=== PATIENT | male | born 1940 | race Caucasian/White ===

== ENCOUNTER → 2018-04-16 | Outpatient (CLI) | payer MEDICARE, OTHER ==
--- NOTE | 2018-04-16 13:22 | RADIOLOGY IMAGING REPORT ---
[place] [facility] [place] NAME[place] Doug Barakat : 1940 MR: [id number] V: [id number] EXAM DATE: ORDERING PHYSICIAN: PHILLIP BOWMAN TECHNOLOGIST: Location: [facility] Patient: Doug Barakat : 1940 Visit/Account:[id number] Date of Sevice: 04/16/2018 Exam type: CHEST PA AND LAT History: COPD, back pain, chest pain Comparison: July 17, 2017. Findings: The lungs are free of acute appearing infiltrates, pleural effusions or pulmonary edema. No evidence of a pneumothorax or pneumomediastinum. Cardiac silhouette is normal in size. There is a moderate size hiatal hernia present. There is marked ectasia the thoracic aorta.. Old left-sided rib fractur es IMPRESSION: 1. No evidence of acute pulmonary consolidation Report Dictated By: Madalyn Smith MD at 04/16/2018 1:15 PM Report E-Signed By: Madalyn Smith MD at 04/16/2018 1:17 PM WSN:[email or web address]
== END ==
LOC: RAD 10:55
PROVIDERS: ATTEND Family Medicine
DX: M54.5 Low back pain (principal); J44.9 Chronic obstructive pulmonary disease, unspecified
CPT/HCPCS: 71046

== ENCOUNTER 2018-09-21 11:00 | Outpatient (RCR) | payer MEDICARE, OTHER ==
--- NOTE | 2018-08-25 16:16 | TOBIN CONSULT ---
EVENT DATE: August 17, 2018 CHIEF COMPLAINT Moderately severe bone pain, newly diagnosed prostate carcinoma to retroperitoneal lymph nodes and bone. HISTORY This is a 78-year-old gentleman who is referred to the Cancer Center by Dr. Guzman. Patient has seen Dr. Anand for medical oncology and myself for radiation oncology. He has also been seen by JIMMY Yanez, at the Cancer Center to help coordinate the oncology treatment plan. Patient presents with moderately severe pain which has not been responding to oral hydrocodone or injections. The pain predominantly is in the left hip and lower back, although intermittently the pain is also in multiple ribs on the left side and the right. Pain has been intensified over the last three to six months and is present both day and at night. Patient had initial MRI scan of the lumbar spine requested by Dr. Guzman, and he was found to have multiple bone lesions consistent with osteoblastic tumor metastases and retroperitoneal lymphadenopathy. PSA was obtained which was significantly elevated at 265 ng/mL on the 07/19/18. Patient underwent biopsy at lumbar 1 on 08/04/18, which was confirmatory for metastatic prostate carcinoma to bone. Patient's initial CT scan of the chest, abdomen, and pelvis revealed significant retroperitoneal lymphadenopathy up to 2.2 cm. There is also right common and external iliac lymphadenopathy up to 1.7 cm. There was an incidental finding of radiodensity near the left mainstem bronchus at 1.8 cm, which will need to be followed up at a later date and was ill defined. The CT scan also confirmed diffuse osteoblastic metastasis. The films were personally reviewed by myself, and I also individually reviewed the films with Dr. Smith of Radiology. The patient had a bone scan on 07/20/18 which revealed tracer activity to the lower thoracic spine. Multiple bony metastases were also noted in the pelvis, left acetabulum. There is a small lesion of the left femur diaphysis, mid. Significant tracer activity along the lateral aspect of the ribs bilaterally, right greater than left. CT also revealed considerable enlargement of the prostate with diffuse irregularity. There is some thickening of the bladder wall. I personally reviewed the MRI scan with significant tracer activity at multiple bony sites. The largest concentration appeared to be at the lower thoracic spine. No acute spinal cord compression, fortunately. Disease in the lumbar spine was better appreciated on the bone window sequence on the CT, surprisingly. Patient is taking hydrocodone for the back pain. Dr. Anand has requested initiation of Firmagon, and that should start within the week. I also was able to appreciate a broad disk herniation in the lumbar spine on the MRI scan review with Dr. Smith, and patient will be started on a short course of oral steroids today to help temporize some of that pain. The steroids also have direct effect on the prostate cancer cells. Presently, I am asked to see the patient for radiation palliation of progressive bone pain. PAST MEDICAL HISTORY 1. Prostate cancer with history listed above. 2. Gout. 3. History of osteoarthritis. SURGICAL HISTORY 1. Right carpal tunnel repair. 2. Bilateral cataracts. FAMILY HISTORY One sister had breast cancer. He has a brother with prostate cancer. Mother, leukemia. SOCIAL HISTORY . He is retired. Previously did concrete work. Prior smoking history of half pack per day for 45 years. He does enjoy drinking beer. He has three children. MEDICATIONS 1. Hydrocodone 5/325 one to two q.4-6 hours p.r.n. pain. 2. Allopurinol. ALLERGIES None. COMPREHENSIVE REVIEW OF SYSTEMS Outlined on intake form, reviewed with patient, and scanned into EMR. PHYSICAL EXAMINATION GENERAL: Pleasant, 78-year-old male of medium build. No clinical signs of wasting. Karnofsky Performance Status 80%. LUNGS: Clear to auscultation bilaterally. HEART: Regular. LYMPHATICS: No peripheral lymphadenopathy identified. ABDOMEN: Soft. No gross organomegaly. MUSCULOSKELETAL: No present swelling in the lower extremities. Patient does have pain over the ribs with palpation as well as the mid to lower thoracic spine. NEUROLOGIC: Intact with no focal motor weakness identified at this juncture. IMPRESSION This is a 78-year-old gentleman with newly diagnosed metastatic prostate carcinoma to bone. He presents with an elevated PSA at 265 ng/mL. He has confirmatory radiographic studies, which I reviewed personally with the patient and radiologist today. Those studies include an MRI scan of the spine, CT of chest, abdomen, and pelvis, and bone scan. He had a bone biopsy on 08/04/18 which confirmed carcinoma activity of lumbar 1. PLAN Patient is symptomatic in the lumbar spine and left acetabulum. Plan to utilize two separate radiation yang to cover the areas of symptomatic bone pain. Field 1 will cover T10 to L5 with an APPA technique weighted heavily posteriorly. That field will proceed to 3000 cGy in 15 fractions, possible boost of five fractions depending on pain relief response. Field 2 will cover the left hip pain which appears to be coming from the left acetabulum. I will utilize a three-field treatment approach to cover the left acetabulum. I also elected to contour in the irregular prostate, which was partially causing some obstructive uropathy. We may also add Flomax shortly. Dr. Anand will direct the patient on Firmagon for accelerated therapeutic response, and we will hopefully have this available to the patient within the next seven days. Radiation therapy will start within one week as well as I complete the complex treatment planning. Additional radiation yang may be necessary at a later point to the ribs as well as the small lesion in the left mid femur diaphysis. I did not see any cortical disruption, however, at this time on the latter. Signed consent was obtained for treatment, and all questions answered to the patient's satisfaction. One hour spent directly face to face with the patient for interview and radiographic review. An additional hour was spent with the radiology with Dr. Smith today to carefully review all imaging. Thank you for the referral and conference in the Cancer Center. JUAN
[~2018-09-21 11:00] MED LIST: HYDR-385 PO; IBUP800T37 PO
[2018-09-24] MEDS ORDERED: CALC600T63 PO (10:38)
[2018-09-24] MEDS ORDERED: TAMS0.4C25 PO (10:41)
[2018-09-24] MEDS ORDERED: CHOL10005 PO (10:41)
== END 2018-10-18 11:48 | disposition home or self-care (01) ==
LOC: RAON 11:00
PROVIDERS: ATTEND Radiology Radiation Oncology
DX: Z51.0 Encounter for antineoplastic radiation therapy (principal); C61 Malignant neoplasm of prostate; C79.51 Secondary malignant neoplasm of bone; R59.0 Localized enlarged lymph nodes; M54.5 Low back pain; M25.552 Pain in left hip; N13.9 Obstructive and reflux uropathy, unspecified; M51.06 Intervertebral disc disorders with myelopathy, lumbar region
CPT/HCPCS: 36415; 77290; 77295; 77300; 77334; 77336; 77412; 77417; 84153; 85025; 96402; G0463; J9155; 77280; 82040; 82247; 82310; 82374; 82435; 82565; 82947; 84075; 84132; 84155; 84295; 84450; 84460; 84520; 99202

== ENCOUNTER 2018-09-24 09:51 | Outpatient (RCR) | payer MEDICARE, OTHER ==
[2018-07-19 08:57] VITALS: BP 148/98
[2018-07-19 10:02] LABS: PLATELET COUNT, AUTOMATED 176 K/uL (150-450)
--- NOTE | 2018-07-20 11:01 | RADIOLOGY IMAGING REPORT ---
[facility] PATIENT NAME: Doug Barakat : 1940 MR: [id number] V: [id number] EXAM DATE: ORDERING PHYSICIAN: JACQUES OZUNA TECHNOLOGIST: Location: [facility] Patient: Doug Barakat : 1940 Visit/Account:[id number] Date of Sevice: 07/20/2018 CHEST/AB/PELV W/WO CONTRAST HISTORY: Bone lesions ADDITIONAL HISTORY: None. TECHNIQUE: Pre and post administration of IV contrast axial images acquired through the chest abdome n and pelvis during the portal venous phase. Coronal and sagittal reformatting was also performed.Do se Lowering Technique One of the following dose optimization techniques was utilized in the performance of this exam: Autom ated exposure control; adjustment of the mA and/or kV according to the patient's size; or use of an i terative reconstruction technique. Specific details can be referenced in the facility's radiology C T exam operational policy. CONTRAST: 75 mL Isovue-370 COMPARISON: MRI of the lumbar spine July 15, 2018 FINDINGS: CHEST: Lungs/Pleura: There is coarse linear stranding in the lung bases which may represent scarring versus atelectasis. There is a 1.8 x 0.7 x 0.4 cm filling defect within the left main bronchus adherent to the posterior/superior wall. Although this could represent a mucous plug, a mass lesion should be e xcluded Mediastinum/lymph nodes: Negative. Heart/vessels: At least moderate coronary artery vascular calcifications are present. There are mod erate vascular calcifications in the thoracic aorta and branch vessels. There is a moderate narrowin g in the proximal left subclavian artery Bones/soft tissues: There are multiple blastic lesions seen throughout the thoracic spine most sever césar affected level is T8. There is mild loss of height of the superior endplate of T4 which may be r elated to a Schmorl's node multiple blastic lesions also identified in the ribs bilaterally. Extensive degenerative changes are also noted in the shoulder joints bilaterally ABDOMEN AND PELVIS: Hepatobiliary: Negative. Spleen: Spleen is borderline enlarged measuring 13.3 cm in length Pancreas: Negative. Adrenals: Negative. Kidneys ureters and bladder : Kidneys appear unremarkable. There is moderate bladder wall thickening which may part be related to underdistention with urine Genitalia: Prostate gland is enlarged, diffusely heterogeneous, contains coarse calcifications and im pinges into the floor the urinary bladder GI: There is a large hiatal hernia. There is colonic diverticulosis although no CT evidence of acu te diverticulitis Vessels/spaces/nodes: Extensive atherosclerotic calcifications are seen throughout the abdominal aor ta and branch vessels. There is moderate narrowing in the mid abdominal aorta secondary to mural thr ombus and atherosclerotic calcifications. There is extensive retroperitoneal adenopathy present. A account service representative left periaortic lymph node a t the proximal level the umbilicus measures approximately 1.7 x 1.3 cm a account service representative aortocaval ly mph node just above this level measures approximately 1.4 x 1.2 cm a account service representative right common delia c lymph node measures 1.5 x 1.2 cm right external iliac lymph node measures 2 x 1.3 cm. Additional r ight external iliac lymph node measures 2.2 x 1.7 cm Bones/soft tissues: There is a small right inguinal hernia containing fat. Extensive osteoblastic metastases are seen throughout the lumbar spine pelvis and hips. There is a levoconvex scoliosis of the lumbar spine with associated spondylotic changes. Additional findings: None pertinent. IMPRESSION: Extensive osteoblastic metastases throughout the visualized skeleton as described above 1.8 x 0.7 x 0.4 cm filling defect within the left main bronchus as described above which could repres ent a mucous plug versus a mass lesion.. Bronchoscopy is recommended Extensive vascular calcifications as described Borderline splenomegaly Prostate gland i enlarged, diffusely heterogeneous containing coarse calcination occasions impinging upon the floor the bladder. Bladder wall is moderately thickened which may part be related to underdistention with urineHiatal he rnia Colonic diverticulosis Small right inguinal hernia containing fat Extensive retroperitoneal adenopathy. Report Dictated By: Madalyn Smith MD at 07/20/2018 9:36 AM Report E-Signed By: Madalyn Smith MD at 07/20/2018 10:56 AM WSN:[email or web address]
--- NOTE | 2018-07-20 11:57 | RADIOLOGY IMAGING REPORT ---
FACILITY: [facility] PATIENT NAME: Doug Barakat : 1940 MR: [id number] V: [id number] EXAM DATE: ORDERING PHYSICIAN: JACQUES OZUNA TECHNOLOGIST: Location: [facility] Patient: Doug Barakat : 1940 Visit/Account:[id number] Date of Sevice: 07/20/2018 Examination: Nuclear medicine whole body bone scan Comparison: CT chest, abdomen, and pelvis same day. History: Prostate cancer. Procedure: Standard whole body bone scan with anterior and posterior planar imaging following the une ventful administration of 24.8 mCi technetium 99m HDP. Findings: Normal physiologic tracer activity throughout the axial and appendicular skeleton and the s oft tissues. Widespread osseous metastatic disease. This is greatest in the axial skeleton were there are numerous foci of increased tracer activity throughout the spine and greatest in the midthoracic region. These sites correspond to sclerotic lesions on the animal taxonomist CT. Additionally, a metastatic lesion is present in the left parieto-occipital region, multiple bilateral ribs, and numerous small sites throughout the pelvis. Subtle small foci of increased tracer activity are also present within the bilateral mid humeri; thes e are of uncertain significance and while they could be related to the deltoid insertions, metastatic disease remains a possibility. A punctate focus of increased tracer activity in the left femur mid d iaphysis is concerning for metastasis. Multifocal degenerative change involving both shoulders, both elbows, both wrists, both knees, and th roughout the hands and feet. IMPRESSION: Multifocal osseous metastatic disease as described above. Report Dictated By: Jose Olvera MD at 07/20/2018 11:45 AM Report E-Signed By: Jose Olvera MD at 07/20/2018 11:52 AM WSN:[id number]
--- NOTE | 2018-07-20 20:16 | ONCOLOGY CONSULTATION ---
EVENT DATE: July 19, 2018 CHIEF COMPLAINT Referred for abnormal MRI of spine. HISTORY OF PRESENT ILLNESS Patient is a 78-year-old male who has been referred to our clinic from [facility] by Dr. Guzman, Pain Management. He states he has had back pain for "several years." He has been treated with steroid injections, but found these were of less use after the third one. Today, he presents with significant left hip and low back pain with radiation to his left leg. He describes his left leg as being intermittently numb. He has been given hydrocodone and taking one every six hours which has been somewhat helpful. He has noted recent constipation. Urinary stream is weak with increased frequency and dribbling. He presents for evaluation after undergoing MRI of the lumbar spine on 07/15/18, which showed multiple T1 and T2 hypointense bone lesions suspicious for blastic metastases. Also noted were multiple mildly enlarged retroperitoneal lymph nodes measuring up to 2.2 x 1.2 cm. Multilevel degenerative disk disease and facet hypertrophy were also noted. MEDICAL HISTORY 1. Gout. 2. Osteoarthritis. SURGICAL HISTORY 1. Right carpal tunnel repair. 2. Bilateral cataracts. FAMILY HISTORY Mother had leukemia. Sister had breast cancer at an unknown age. Brother had prostate cancer. SOCIAL HISTORY Patient is . They have three grown children. He is retired from concrete work. He has smoked half a pack a day for 40 to 50 years. He does drink beer regularly. MEDICATIONS 1. Hydrocodone 5/325 mg. 2. Allopurinol. ALLERGIES No known drug allergies. REVIEW OF SYSTEMS A 14-point review of systems is performed and is negative except as stated above. PHYSICAL EXAMINATION VITAL SIGNS: Weight 80.4 kg, BP 148/98, P 80, R 16, temp 97.3, O2 sat 85%. GENERAL: Patient is a well-developed, well-nourished, elderly male in no acute distress. He ambulates unassisted. HEAD: Normocephalic, atraumatic. EYES: Sclerae anicteric. MOUTH: Moist mucous membranes. No lesions. NECK: Supple. No palpable adenopathy. LUNGS: Slightly diminished bilaterally, but clear. CARDIOVASCULAR: Heart rate regular, 80 per minute, without murmur, S3, or S4. ABDOMEN: Soft, nontender, with hypoactive bowel sounds. No organomegaly. EXTREMITIES: No pedal edema. NEUROLOGIC: Nonfocal. Strength in both legs is equal. SKIN: No rash noted. LABORATORY CBC today reveals a WBC of 6.1, hemoglobin 14.4, hematocrit 44.1, platelets 176,000. CMP was within normal limits except for a minimally elevated alkaline phosphatase of 133. SPEP with immunofixation is pending. PSA was 265. IMPRESSION AND PLAN The patient is a 78-year-old male who presented with an abnormal MRI of the spine showing multiple T1 and T2 hypointense bone marrow lesions suspicious for blastic metastases. There were also multiple mildly enlarged retroperitoneal nodes as well as degenerative disk disease. 1. Back pain. With elevated PSA, this is likely reflective of advanced prostate cancer. He will undergo initial staging with a CT of the chest, abdomen, and pelvis, as well as a bone scan. This will be accomplished in the next few days. He will then follow up with Dr. Anand in one week for treatment planning. 2. Gastrointestinal. Recent constipation. He is managing this with prune juice. We also discussed MiraLAX. 3. Pain. Continue hydrocodone 5/325 mg. This was prescribed by Dr. Guzman. He feels it is managing his pain fairly well. 4. Follow up in one week to review bone scan and CAT scan and for further treatment planning. cc: MD JUAN Fox
[2018-07-28 10:03] VITALS: BP 161/92
[2018-08-11 14:08] VITALS: BP 133/77
--- NOTE | 2018-08-12 19:44 | ONCOLOGY FOLLOW UP NOTE ---
EVENT DATE: August 12, 2018 CHIEF COMPLAINT Followup for metastatic prostate cancer. HISTORY OF PRESENT ILLNESS Patient is a 78-year-old male who is seen today in followup. He presents to discuss treatment for metastatic prostate cancer today. Overall, he feels fairly well, although continues with significant left low back pain as well as some intermittent right rib pain. He uses ibuprofen and occasional hydrocodone, but is somewhat overwhelmed by this discomfort. I spent a total of 45 minutes with the patient, his , and his son discussing his current status as well as initial treatment with Firmagon. He will receive further teaching about this before beginning treatment. ONCOLOGY HISTORY He was referred for an abnormal MRI from [facility] after noting an increase in back pain for "several years." CT of the chest, abdomen, and pelvis showed extensive bony disease with extensive retroperitoneal adenopathy. Prostate was enlarged and diffusely heterogeneous. Bone scan showed multifocal osseous metastatic disease. PSA was 265. He underwent bone biopsy on 08/04/18, which was positive for metastatic prostate cancer. To begin Firmagon. MEDICAL HISTORY 1. Gout. 2. Osteoarthritis. 3. Metastatic prostate cancer, July 2018. SURGICAL HISTORY 1. Right carpal tunnel repair. 2. Bilateral cataracts. FAMILY HISTORY Mother had leukemia. Sister had breast cancer at an unknown age. Brother had prostate cancer. SOCIAL HISTORY Patient is . They have three grown children. He is retired from concrete work. He has smoked half a pack a day for 40 to 50 years. He does drink beer regularly. MEDICATIONS 1. Hydrocodone 5/325 mg. 2. Allopurinol. ALLERGIES No known drug allergies. REVIEW OF SYSTEMS A 12-point review of systems is performed and is negative except as stated above. PHYSICAL EXAMINATION VITAL SIGNS: Weight 79.4 kg. Blood pressure 133/77, pulse 80, R 16, temp 97.1, O2 sat 90%. GENERAL: Patient is a well-developed, well-nourished male in no acute distress. He moves very slowly in the exam room with kyphotic posture. HEAD: Normocephalic, atraumatic. EYES: Sclerae anicteric. MOUTH: Moist mucous membranes. NECK: Supple. No palpable adenopathy. LUNGS: Clear bilaterally. CARDIOVASCULAR: Heart rate regular, 80 per minute, without murmur, S3, or S4. ABDOMEN: Soft, nontender, with hypoactive bowel sounds. No organomegaly. Point tenderness to his right lower ribs. EXTREMITIES: No pedal edema. NEUROLOGIC: Nonfocal. Strength in both legs is equal. LABORATORY No lab today. Baseline CBC and CMP were within normal limits except for a mildly elevated alkaline phosphatase of 133. Baseline PSA 265. SPEP within normal limits. IMPRESSION AND PLAN The patient is a 78-year-old male with stage IV prostate cancer with diffuse bony metastases as well as extensive retroperitoneal adenopathy. Bone biopsy on 08/04/18 confirmed the diagnosis of metastatic prostate cancer. To begin Firmagon next week. 1. Metastatic prostate cancer. As above, I spent a total of 45 minutes with the patient, his , and his son reviewing his case and discussing the treatment plan. Per Dr. Anand, we will begin treatment with Firmagon 240 mg subcutaneously initially, followed by 80 mg monthly. PSA will be checked at each visit. Dr. Anand is considering adding abiraterone after several months. Patient states agreement. He will receive further teaching regarding Firmagon before beginning treatment. 2. Pain. Ongoing left-sided low back pain as well as intermittent right rib pain. He finds this is becoming more debilitating. He uses ibuprofen with some effect. He takes hydrocodone p.r.n. ( does not think he takes it often enough). I have refilled hydrocodone 5/325 mg #30 for patient today. He will be referred to Dr. Dumont for possible radiation for pain control. 3. Gastrointestinal. Minimal constipation. I reminded him that the hydrocodone can cause more constipation. 4. Follow up in the next week to begin treatment with Firmagon. He will be seen on a monthly basis with a CBC, CMP, and PSA done at that time. [facility]
[2018-08-27 12:45] LABS: PLATELET COUNT, AUTOMATED 227 K/uL (150-450)
--- NOTE | 2018-08-27 21:01 | ONCOLOGY FOLLOW UP NOTE ---
EVENT DATE: August 27, 2018 DIAGNOSIS Metastatic prostate cancer. CHEMOTHERAPY TEACHING VISIT The patient and his are seen today for teaching. A total of 60 minutes was spent with them, 100% of which was [id number] counseling. HISTORY OF PRESENT ILLNESS The patient is a 78-year-old male who presents today to begin treatment with degarelix. He was recently diagnosed with metastatic prostate cancer, and baseline PSA was 265. Bone biopsy was positive for metastatic prostate cancer. He had significant bony arthralgias, especially on his left hip area. He began radiation on 08/25/18 with some improvement of his pain. Overall, he feels well and ready to begin treatment. ONCOLOGY HISTORY Began palliative radiation to the lumbar spine and pelvis on 08/25/18. Began degarelix on 08/27/18. MEDICAL HISTORY 1. Gout. 2. Osteoarthritis. 3. Metastatic prostate cancer, July 2018. SURGICAL HISTORY 1. Right carpal tunnel repair. 2. Bilateral cataracts. FAMILY HISTORY Mother had leukemia. Sister had breast cancer at an unknown age. Brother had prostate cancer. SOCIAL HISTORY Patient is . They have three grown children. He is retired from [employer] work. He has smoked half a pack a day for 40 to 50 years. He does drink beer regularly. MEDICATIONS 1. Hydrocodone 5/325 mg. 2. Allopurinol. ALLERGIES No known drug allergies. DISCUSSION A total of 60 minutes was spent in counseling today, 100% of which was face to face. 1. At today's teaching session, we discussed his diagnosis as well as the planned therapy regimen and toxicities associated with degarelix. Handouts of this drug were provided and reviewed in detail. 2. Side effects and toxicities of degarelix included, but were not limited to: a. Fatigue. Reviewed that this could be a very common side effect of treatment. I recommended he remain as active as possible, but rest as needed. b. Hot flashes. This can occur in 25% of men. There are sometimes associated mood changes. He will monitor for this, and we will manage side effects based on his response. c. Injection site reaction. This can occur in approximately 35% of people. He tolerated his first injections without issue. He will notify us if he develops significant redness or tenderness. d. Increased LFTs. This can occur in approximately 50% of people. CMP will be done routinely to monitor for this. I recommended he abstain from alcohol as much as possible. e. Bone loss. Recommended calcium 1200 mg daily as well as vitamin D3 1000 International Units daily. 3. I have instructed the patient to call our office if he is prescribed any new medications. It is recommended that multiple supplements or herbal medications may not be taken as these may interfere with the action of therapy. 4. Discussed dietary issues associated with therapy. His appetite has improved since beginning treatment, and I am hopeful that as we control his disease, this will continue to improve. 5. Follow up in one month for continued care. He will receive his second dose of degarelix at that time. CBC, CMP, and PSA will be done at that visit. ANASTASIIAD
--- NOTE | 2018-09-03 13:03 | NUR ---
Pt completed initial HADS form. Pt scored D:1, A:4
--- NOTE | 2018-09-12 04:17 | ONCOLOGY FOLLOW UP NOTE ---
EVENT DATE: July 28, 2018 REASON FOR FOLLOWUP Metastatic hormone-sensitive prostate cancer. CHIEF COMPLAINT Back pain. INTERIM HISTORY Mr. Barakat returns to clinic for a followup visit today. He is accompanied by his family members. I am seeing him today with Anh Damon, Nurse Practitioner. The patient reports that he is feeling okay for the most part, but he does continue to have some low back pain, particularly on the left. He denies fever. He has had no urinary symptoms. He has had no abdominal pain or changes in bowel habits. PAST MEDICAL HISTORY 1. Prostate cancer, as above. 2. Gout. 3. Osteoarthritis. PAST SURGICAL HISTORY 1. Status post right carpal tunnel repair. 2. History of bilateral cataract surgery. FAMILY HISTORY There is a family history of leukemia in his mother. His sister had breast cancer. His brother had prostate cancer. SOCIAL HISTORY The patient is . He has a 40- to 18-rrio-zjac smoking history. He drinks beer regularly. MEDICATIONS 1. Hydrocodone p.r.n. 2. Allopurinol. ALLERGIES No known drug allergies. PHYSICAL EXAMINATION VITAL SIGNS: Patient is afebrile and vital signs are stable. GENERAL: Patient is alert and oriented x3, in no apparent distress, sitting in the exam room chair. HEENT: Anicteric sclerae. No significant oropharyngeal lesions. NEUROLOGIC: Grossly nonfocal. His gait is normal. EXTREMITIES: No edema, clubbing, or cyanosis. LABORATORY STUDIES Reviewed per the [facility] record. IMAGING Reviewed per the [facility] record. ASSESSMENT AND PLAN Metastatic hormone-sensitive prostate cancer. I visited with Doug and his family members today. We discussed the nature of his prostate cancer and goals of treatment. Any and all treatment for his prostate cancer will be palliative in nature. I have recommended that he begin androgen deprivation therapy with Firmagon. We also discussed the possibility of adding abiraterone and prednisone, or palliative Taxotere for six cycles, to his regimen. Whether or not we opt to move forward with one of these will remain to be seen, largely depending on tolerance of therapy. Patient had several questions for me today, and I believe I answered all of his questions to his satisfaction. He will have followup here on August 12. JUAN
[2018-09-20 14:02] VITALS: BP 123/80
[2018-09-20 14:07] LABS: PLATELET COUNT, AUTOMATED 188 K/uL (150-450)
[~2018-09-24 09:51] MED LIST changes: +DEGARELIX ACETATE 240 MG SQ ONE; +IOPAMIDOL 76% 75 ML INFUS BTL 75 ML ONE
[2018-09-24 09:53] VITALS: BP 130/81
[2018-09-24] MEDS ORDERED: DEGARELIX ACETATE 80 MG SQ ONE (10:00)
[2018-09-24] MEDS ORDERED: CALC600T63 PO (10:38)
[2018-09-24] MEDS ORDERED: TAMS0.4C25 PO (10:41)
[2018-09-24] MEDS ORDERED: CHOL10005 PO (10:41)
--- NOTE | 2018-09-24 11:48 | ONCOLOGY FOLLOW UP NOTE ---
EVENT DATE: September 24, 2018 CHIEF COMPLAINT Followup for metastatic prostate cancer. HISTORY OF PRESENT ILLNESS The patient is a 78-year-old male who is seen today in followup. He will receive his second dose of Firmagon today. He has now completed palliative radiation. He continues with some intermittent back pain but overall this is much improved. He uses Hydrocodone on a p.r.n. basis for his back pain. He tolerated his first dose of Firmagon fairly well, although did have the expected firm nodules after the injections. He denies significant hot flashes or breast tenderness. His biggest complaint is that of nocturia occurring every one to two hours all night. He also has some urgency during the day. ONCOLOGY HISTORY Patient presented in July 2018 to [facility] with back pain. MRI showed likely metastatic disease. Baseline PSA at that time was 265. Bone biopsy was positive for metastatic prostate cancer. He completed palliative radiation to T10-L5 and the left hip from August 25, 2018, through September 21, 2018. Began degarelix on August 27, 2018. MEDICAL HISTORY 1. Gout. 2. Osteoarthritis. 3. Metastatic prostate cancer, July 2018. SURGICAL HISTORY 1. Right carpal tunnel repair. 2. Bilateral cataracts. FAMILY HISTORY Mother had leukemia. Sister had breast cancer at an unknown age. Brother had prostate cancer. SOCIAL HISTORY Patient is . They have three grown children. He is retired from concrete work. He has smoked half a pack a day for 40 to 50 years. He does drink beer regularly. MEDICATIONS 1. Hydrocodone 5/325 mg. 2. Allopurinol. 3. Calcium 600 mg b.i.d. 4. Vitamin D3 1000 IU daily. 5. Flomax 0.4 mg daily. ALLERGIES No known drug allergies. REVIEW OF SYSTEMS A 12-point review of systems is performed and is negative except as stated above. PHYSICAL EXAM VITAL SIGNS: Weight 76.3 kg, BP 130/81, P 88, R 16, temperature 97.1, O2 sat 90%. GENERAL: Patient is a well-developed, well-nourished male in no acute distress. He is hard of hearing. HEAD: Normocephalic, atraumatic. EYES: Sclerae anicteric. MOUTH: Moist mucous membranes. NECK: Supple. No palpable adenopathy. LUNGS: Clear bilaterally. CARDIOVASCULAR: Heart rate regular, 88 per minute without murmur, S3 or S4. EXTREMITIES: No edema. NEURO: Nonfocal. LABS CBC on September 20, 2018, showed a WBC of 6.6, hemoglobin 14.9, hematocrit 47.7, platelets 1888,000. CMP was within normal limits except for a slightly elevated AST of 38 and an alkaline phosphatase of 165. PSA decreased from 565 on August 27, 2018, to 92 on September 20, 2018. IMPRESSION The patient is a 78-year old male who presented in July 2018 with metastatic prostate cancer to the bone, biopsy proven. Began degarelix on August 27, 2018. Completed palliative radiation to T10-L5 and left hip on September 21, 2018. 1. Prostate cancer. Today, we reviewed the remarkable decrease in his PSA from 565 to 92. He will receive degarelix 80 mg subcutaneous today and continue this on a monthly basis. We also reviewed that there were other medications that could be added if needed. Thankfully, he is tolerating the degarelix without issue. 2. Back pain. Continued, although improved after palliative radiation. He uses Hydrocodone on a p.r.n. basis and feels this is managing this. 3. Genitourinary. Complains of nocturia every 1-2 hours at night as well as some urgency. He has been on Flomax 0.4 mg daily. We will increase this to 0.4 mg b.i.d. 4. Follow up on October 22, 2018, with CBC, CMP and PSA. He will also receive Firmagon that day. 5. Follow up with Dr. Anand on October 27, 2018, for continued care. ANASTASIIAD
== END 2018-10-17 ==
LOC: ONC 09:51
PROVIDERS: ATTEND Internal Medicine Medical Oncology
DX: C61 Malignant neoplasm of prostate (principal); C79.51 Secondary malignant neoplasm of bone; R97.20 Elevated prostate specific antigen [PSA]; R16.1 Splenomegaly, not elsewhere classified; K57.30 Diverticulosis of large intestine without perforation or abscess without bleeding; K40.90 Unilateral inguinal hernia, without obstruction or gangrene, not specified as recurrent; I70.90 Unspecified atherosclerosis; R59.0 Localized enlarged lymph nodes; M54.5 Low back pain; R07.82 Intercostal pain
CPT/HCPCS: 36415; 84153; 84160; 84165; 85025; 96402; A9503; G0463; J9155; Q9967; 71270; 74178; 78306; 82040; 82247; 82310; 82374; 82435; 82565; 82947; 84075; 84132; 84155; 84295; 84450; 84460; 84520; 99212

== ENCOUNTER 2018-11-26 09:45 | Outpatient (RCR) | payer MEDICARE, OTHER ==
--- NOTE | 2018-11-05 12:14 | PT INITIAL EVALUATION ---
MEDICAL DIAGNOSIS: Metastatic Prostate Cancer, Low Back Pain TREATMENT DIAGNOSIS: Lumbar Dysfunction, Metastatic Prostate Cancer DATE OF ONSET: 11/05/18 SUBJECTIVE: Doug is a 78 year old male presenting to physical therapy following prolonged onset of LBP. Pt reports that the pain started about a year ago or more and slowly got worse. Pt went to see a PT for treatment which lead to discovery of metastatic prostate cancer with mets in B hips and spine. Pt underwent 20 rounds of radiation but remains to have low back pain. Pain is better with lying flat and doesn't bother him when sitting, though hurts when he gets up from sitting. Pain also increases with walking. Pt reports that pain is currently rated as 4/10 and will occasionally go down the L leg to knee level or up the R thoracic region. REHAB PROBLEM LIST: Increased Pain Decreased ROM Impaired Transfers Decreased Endurance Decreased Function Decreased ADL's Decreased Mobility Decreased Gait PREVIOUS MEDICAL HISTORY: See EMR OBJECTIVE: Posture: Pt presents with significant forward trunk lean with flexion at low back and hip level no lordosis is noted in lumbar spine. Pt additionally has slight R trunk lean and has increased thoracic kyphosis. ROM: Lumbar ROM: flexion: full no pain, ext: moderate restrictions with no pain, L rotation: minimal restrictions with no pain, R rot: full no pain, L SB: L leg pain with full motion, R SB: full with no pain Special Tests: Repeated motion lumbar screen: standing flex: no change, standing ext:no change, R SB: no change, prone press up: no pain, supine flexion: no change Other Objective Findings: Oswestry Low Back Pain (LBP) Disability Questionnaire: 1545 ASSESSMENT: Doug presents with signs and symptoms consistent with lumbar posterior derangement with possible lateral shift. Physical therapy is indicated to address the above listed impairments to improve pt function with ADL's. Short Term Goals In 3 weeks pt will have full lumbar ROM for improved function with ADL's. In 6 weeks pt will decrease pain in low back to along the spine only at <2/10 with ADL's. In 6 weeks pt will improve Oswestry LBP Disability Score to <10 for improved function with ADL's. Patient's Goals Decrease LBP to improve functional mobility. PLAN: Patient to be seen for Manual Therapy/STM/MET Strengthening/condition Ice/Heat Range of Motion Spinal Stabilization Ultrasound Stretching Iontophoresis Neuromuscular Re-ed Closed Chain Program Electrical Stim Posture/Body mechanics Gait Trg/Balance Trg Biofeedback Home Exercise Program Mech./Manual Traction Therapeutic Activities Pelvic Floor 2x/Week for 6 Weeks If you have any questions, comments, or concerns about this report or plan, please contact me at . Thank you, Chio Blakely, PT, DPT, CLT MTDD
--- NOTE | 2018-11-24 11:16 | RADIOLOGY IMAGING REPORT ---
FACILITY: [facility] PATIENT NAME: Doug Barakat : 1940 MR: [id number] V: [id number] EXAM DATE: ORDERING PHYSICIAN: RUDDY MENA TECHNOLOGIST: Location: [facility] Patient: Doug Barakat : 1940 Visit/Account:[id number] Date of Sevice: 11/24/2018 CT CHEST ABDOMEN PELVIS W/CON HISTORY: Widespread metastatic disease. Follow-up. ADDITIONAL HISTORY: None. TECHNIQUE: Following administration of IV contrast axial images acquired through the chest abdomen a nd pelvis during the portal venous phase. Coronal and sagittal reformatting was also performed. One of the following dose optimization techniques was utilized in the performance of this exam: Automate d exposure control; adjustment of the mA and/or kV according to the patient's size; or use of an iter ative reconstruction technique. Specific details can be referenced in the facility's radiology CT e xam operational policy. CONTRAST: 80 mL Isovue-370 COMPARISON: CT chest abdomen pelvis 07/20/2018 FINDINGS: CHEST: Lungs/Pleura: 2 mm micronodule right upper lobe (image 22 series 2) is unchanged. There is a minima l right basilar discoid atelectasis slightly increased from previous study. Lung parenchyma otherwis e unremarkable Mediastinum/lymph nodes: Negative. Heart/vessels: Negative. Bones/soft tissues: Again seen is extensive blastic metastatic disease throughout the axial skeleton with extensive involvement of the thoracic spine. The lesions have progressed in both size and numb er from the previous examination. For example, a T2 vertebral body lesion previously measuring 1.0 x 0.9 cm now measures 2.2 x 1.7 cm. A T10 vertebral body lesion previously measuring 1.7 x 1.2 cm now measures 2.7 x 1.8 cm. There is very extensive involvement of T2, T4, T6-T9, and T12. There are mu ltiple additional new small lesions seen as well as multiple rib lesions. ABDOMEN AND PELVIS: Hepatobiliary: Negative. Spleen: Negative. Pancreas: Negative. Adrenals: Negative. Kidneys ureters and bladder : Negative. Genitalia: Prostate is mildly enlarged and unchanged in appearance. The right testicle is retracted in the inguinal canal on today's study GI: Extensive colonic diverticulosis again seen through the entire length of the colon most extensi ve in the sigmoid colon. Small bowel unremarkable. There is a moderate size hiatal hernia unchanged . Vessels/spaces/nodes: Previously seen retroperitoneal adenopathy has regressed. For example, a retr operitoneal lymph node seen axial image 131 series 2 previously measured 1.2 cm maximum dimension now measures 0.7 cm maximum dimension. A second retroaortic lymph node seen axial image 1:30 series 2 p reviously measured 1.5 cm maximum dimension now measures 0.7 cm maximum dimension. A node along the right pelvic sidewall previously measuring 2.0 cm maximum dimension now measures 1.2 cm maximum dimen sander. Bones/soft tissues: There is extensive blastic metastatic disease through the lumbar spine and pelvi s and proximal femurs which is progressed in both size and number since the previous exam. For examp le, and L3 vertebral body lesion previously measuring 1.2 x 1.0 cm diameter now measures 2.3 x 2.0 cm in diameter. A right ischial lesion producing measuring 0.6 x 0.5 cm now measures 1.1 x 1.0 cm. Mu ltiple new small lesions are also seen. There is L5-S1 spondylolysis with grade 1 spondylolisthesis. Additional findings: None pertinent. IMPRESSION: Mixed results of interval therapy. Interval progression of Widely metastatic blastic osseous metastasis which has increased in both size and number. Interval regression of metastatic retroperitoneal adenopathy. Extensive colonic diverticulosis as well as additional benign findings discussed in the report are un changed. Report Dictated By: Catarino Mcleod MD at 11/24/2018 10:46 AM Report E-Signed By: Catarino Mcleod MD at 11/24/2018 11:11 AM WSN:[id number]
--- NOTE | 2018-11-24 16:36 | RADIOLOGY IMAGING REPORT ---
FACILITY: [facility] PATIENT NAME: Doug Barakat : 1940 MR: [id number] V: [id number] EXAM DATE: ORDERING PHYSICIAN: RUDDY MENA TECHNOLOGIST: [facility] Patient: Doug Barakat : 1940 Visit/Account:[id number] Date of Sevice: 11/24/2018 NM BONE SCAN COMPLETE HISTORY: Osseous metastatic disease ADDITIONAL HISTORY: Metastatic prostate cancer TECHNIQUE: 24.8 mCi technetium 99m HDP was injected intravenously. Delayed anterior and posterior wh ole body gamma camera images were obtained. Additional gamma camera images: None. COMPARISON: Comparison made to previous bone scan performed 07/20/2018 which demonstrates widesprea d radiotracer avid bone metastasis. Comparison also made to CT chest abdomen pelvis performed today as well as to a previous CT chest abdomen pelvis performed in July 2018. Today's CT scan demonst rated extensive progression of disease with osseous lesions increasing in size and number. FINDINGS: Bone radiotracer activity: There is abnormal increased radiotracer at activity in the midthoracic sp ine which corresponds to extensive blastic metastatic disease in the T7-T10 vertebral bodies. There are also other areas of increased radiotracer uptake in multiple additional spinal lesions, rib lesio ns, pelvic lesions, and a left temporal bone lesion. However, the lesions, while increased in size a nd number on the CT scans, demonstrate relatively less radiotracer uptake than the previous examinati on. Extraosseous radiotracer activity: Unremarkable. Renal and urinary collecting system activity: Unremarkable. IMPRESSION: Results of this nuclear medicine study are discordant from the comparison CT scans. The CT scan perf ormed today demonstrates progression of blastic metastatic disease with lesions increasing in size an d number. This nuclear medicine study demonstrates persistent abnormal radiotracer uptake but the le sions are less radiotracer avid than the prior examination. This raises the possibility that the les ions have progressed but the patient is now receiving therapy which may be impairing the metabolic ac tivity of these lesions. Report Dictated By: Catarino Mcleod MD at 11/24/2018 4:05 PM Report E-Signed By: Catarino Mcleod MD at 11/24/2018 4:33 PM WSN:[email or web address]
[~2018-11-26 09:45] MED LIST changes: +CALC600T63 PO; +CHOL10005 PO; -DEGARELIX ACETATE 240 MG SQ ONE; -IOPAMIDOL 76% 75 ML INFUS BTL 75 ML ONE; +TAMS0.4C25 PO
== END 2018-11-26 18:00 | disposition home or self-care (01) ==
LOC: PT 09:45
PROVIDERS: ATTEND Internal Medicine Medical Oncology
DX: M54.5 Low back pain (principal); C61 Malignant neoplasm of prostate; C79.51 Secondary malignant neoplasm of bone
CPT/HCPCS: 97161

== ENCOUNTER 2019-01-14 08:48 | Outpatient (RCR) | payer MEDICARE, OTHER ==
[2018-10-22 11:32] VITALS: BP 115/72
[2018-10-22 11:44] LABS: PLATELET COUNT, AUTOMATED 215 K/uL (150-450)
[2018-10-27 11:26] VITALS: BP 123/73
--- NOTE | 2018-10-27 17:47 | ONCOLOGY FOLLOW UP NOTE ---
EVENT DATE: October 27, 2018 CHIEF COMPLAINT Followup for metastatic prostate cancer. HISTORY OF PRESENT ILLNESS The patient is a 78-year-old male who is seen today in followup. He will receive his second dose of Firmagon today. He has now completed palliative radiation. He continues with some intermittent back pain but overall this is much improved. He uses Hydrocodone on a p.r.n. basis for his back pain. He tolerated his first dose of Firmagon fairly well, although did have the expected firm nodules after the injections. He denies significant hot flashes or breast tenderness. His biggest complaint is that of nocturia occurring every one to two hours all night. He also has some urgency during the day. He will be receiving his third dose of Firmagon today. He has now completed palliative radiotherapy from T10 to L5 and the left hip, completed on 09/21/2018. He continues to report some intermittent back pain, but overall reports that this has much improved. He does report some fairly new mid upper thoracic back pain as well as some right-sided back pain. His right hip has improved. He has some occasional fatigue and weakness, but has not been using his hydrocodone very often, for which he uses p.r.n. for his back pain. He reports tolerating Firmagon injections fairly well. He denies any significant side effects or toxicities, to include no hot flashes or gynecomastia or breast tenderness. At his last visit, he did report nocturia every 1-2 hours throughout the night, but is now on Flomax b.i.d., which has controlled this significantly. He does report a somewhat decreased appetite and occasionally feeling what he describes as dizzy, though has not had any syncopal episodes. His appetite tends to wax and wane per his . He continues to smoke at least 2-3 cigarettes per day. Otherwise, Mr. Barakat reports feeling well. ONCOLOGY HISTORY Patient presented in July 2018 to [facility] with back pain. MRI showed likely metastatic disease. Baseline PSA at that time was 265. Bone biopsy was positive for metastatic prostate cancer. He completed palliative radiation to T10-L5 and the left hip from August 25, 2018, through September 21, 2018. Began degarelix on August 27, 2018. His most recent CT and bone scan were July 2018. MEDICAL HISTORY 1. Gout. 2. Osteoarthritis. 3. Metastatic prostate cancer, July 2018. SURGICAL HISTORY 1. Right carpal tunnel repair. 2. Bilateral cataracts. FAMILY HISTORY Mother had leukemia. Sister had breast cancer at an unknown age. Brother had prostate cancer. SOCIAL HISTORY Patient is . They have three grown children. He is retired from concrete work. He has smoked half a pack a day for 40 to 50 years. He does drink beer regularly. MEDICATIONS 1. Hydrocodone 5/325 mg. 2. Allopurinol. 3. Calcium 600 mg b.i.d. 4. Vitamin D3 1000 IU daily. 5. Flomax 0.4 mg daily. ALLERGIES No known drug allergies. REVIEW OF SYSTEMS A 12-point review of systems is performed and is negative, with the exception of statements above. This includes patient's reports of intermittent weakness and fatigue, mid upper thoracic and right-sided back pain, as well as occasionally feeling as if he is dizzy. He also reports ongoing decreased appetite, though this tends to wax and wane. He reports approximately a 14-pound weight loss since diagnosis. PHYSICAL EXAM VITAL SIGNS: Weight 160 pounds, approximately 15 to 16-pound weight loss since diagnosis, blood pressure 123/73, Pulse 84, respirations 18, O2 saturation 89% room air, Temperature 97.4 degrees Fahrenheit. GENERAL: Patient is a well-developed, well-nourished male in no acute distress. He is hard of hearing. HEAD: Normocephalic, atraumatic. EYES: Sclerae anicteric. MOUTH: Moist mucous membranes. NECK: Supple. No palpable adenopathy. LUNGS: Fairly clear and symmetric breath sounds bilaterally. CARDIOVASCULAR: Regular rate and rhythm, no murmurs, no ectopy. EXTREMITIES: No edema. NEUROLOGIC: Grossly intact. Patient is A and O x3. MUSCULOSKELETAL: Patient did not have any pain to palpation of the bony spinous processes on examination today. LABORATORY CBC on 10/22/2018: WBC 6.2, ANC 5.1, Hemoglobin 14.3, Hematocrit 45.6%, Platelets 215,000. CMP on the same date was unremarkable with the exception of a minimally low total protein at 6.1 g/dL, as well as a mildly low albumin at 3.4 with a normal calcium of 9.1. PSA on same date of service has decreased to 10.7 from previous 565 on 08/27/2018. IMPRESSION AND PLAN The patient is a 78-year old male who presented in July 2018 with metastatic prostate cancer to the bone, biopsy proven. Began degarelix on August 27, 2018. Completed palliative radiation to T10-L5 and left hip on September 21, 2018. 1. Prostate cancer: We reviewed his lab results from last week and discussed his ongoing remarkable decrease in his PSA, which is now currently just under 11. He is tolerating degarelix 80 mg subcutaneous injections monthly quite well. He will receive his third dose today, and we will plan to change this over to Lupron 7.5 mg depo monthly injection starting next month. He denies any significant toxicities, and we did review these at length today. 2. Back pain: Continues, although areas have improved after palliative radiation. He is reporting some different locations of back pain, specifically in his mid upper thoracic back. There was no pain to palpation on examination. He uses hydrocodone on an as-needed basis and uses this sparingly. We discussed his pain regimen and increasing use, though we also discussed caution and potential side effects. A refill was provided for the patient today, handwritten, 5/325 mg one tablet p.o. q.4-6 hours PRN pain, #60. 3. Genitourinary: Patient will continue on Flomax 0.4 mg BID. This has improved his urgency significantly. 4. Dizziness and fatigue: Patient does have slightly low oxygen levels today. Discussed this with Dr. Anand today. Will check a walking pulse oximetry in clinic today. The patient ranges between upper 80s to low 90s on room air. He denies any shortness of breath or chest pain. He does continue smoking cigarettes daily. 5. Nutrition and overall exercise: Discussed at length today. I have ordered a physical therapy and nutrition consult for evaluation and treatment. The patient was instructed to start this as soon as possible pending authorization and scheduling. 6. Re-imaging: I have ordered a re-staging CT chest, abdomen, and pelvis with contrast, as well as a repeat bone scan to evaluate treatment response. We would like for the patient to have this done in a month, hopefully prior to his next followup visit with us. 7. Patient will return to clinic in one month for followup and treatment, which will be his first cycle with monthly Lupron. I discussed the patient's treatment plan with Dr. Anand today, who did come in and see patient during our visit. He agrees with the above treatment plan. MTDD
--- NOTE | 2018-10-29 09:07 | Medical Nutrition Therapy ---
Nutritional Education Nutrition Education Topic: Other (Ca dx with poor appetite) Learning Readiness: Not Interested Response to Teaching: Patient Refused Nutrition Counseling: Recieved email from Naz Heller RN stating dr britton requested MNT consult r/t pt's lack of appetite. Called and pt not intersted in diet education at this time. stated she thougth pt was eating better. Provided contact information an advised that they could call at Rd at anytime in the future if issues develope Copies To Copies to: RUDDY MENA MD ; ALICE DESOUZA Oct 29, 2018 09:07
[2018-11-19 09:25] VITALS: BP 118/84
[2018-11-19 09:39] LABS: PLATELET COUNT, AUTOMATED 182 K/uL (150-450)
[2018-12-01 10:36] VITALS: BP 135/90
--- NOTE | 2018-12-01 22:40 | ONCOLOGY FOLLOW UP NOTE ---
EVENT DATE: December 01, 2018 CHIEF COMPLAINT Followup for metastatic prostate cancer. Patient recently had restaging CT and bone scan, here for results. HISTORY OF PRESENT ILLNESS This is a pleasant 78-year-old male who is here today for followup specifically to discuss recent restaging scans. He has received Firmagon three doses in the past and is now on monthly Lupron. He has received one dose of Lupron thus far. He has completed palliative radiotherapy. He continues to have some intermittent back pain. At last visit, he reported this had overall improved since radiotherapy, though today tells me that this is persistent at times, tends to radiate to his right anterior chest wall near the rib cage. He uses hydrocodone p.r.n. for this, though does not take this too often as he feels this causes some drowsiness and constipation. He currently uses prune juice for constipation. He denies any significant hot flashes or breast tenderness. He continues to note nocturia approximately four times per evening. He remains on Flomax b.i.d. He does have some urgency during the day. He completed radiotherapy from T10 to L5 as well as the left hip, completed on 09/21/18. Right hip pain has improved. He has some generalized fatigue and weakness. He continues to smoke at least two to three cigarettes per day. He is accompanied in the office by his and son. He had a CT scan done on 11/24/18, as well as bone scan. ONCOLOGY HISTORY Patient presented in July 2018 to [facility] with back pain. MRI showed likely metastatic disease. Baseline PSA at that time was 265. Bone biopsy was positive for metastatic prostate cancer. He completed palliative radiation to T10 to L5 and the left hip from August 25, 2018, through September 21, 2018. Began degarelix on August 27, 2018. He received three doses thus far. He has now been transitioned over to monthly Lupron. He has received one dose of Lupron so far. He had a CT and bone scan done in July 2018. On 11/24/[address] chest, abdomen, and pelvis, as well as a bone scan. MEDICAL HISTORY 1. Gout. 2. Osteoarthritis. 3. Metastatic prostate cancer July 2018. SURGICAL HISTORY 1. Right carpal tunnel repair. 2. Bilateral cataracts. FAMILY HISTORY Mother had leukemia. Sister had breast cancer at an unknown age. Brother had prostate cancer. SOCIAL HISTORY Patient is . They have three grown children. He is retired from concrete work. He has smoked half a pack a day for 40 to 50 years. He does drink beer regularly. MEDICATIONS 1. Hydrocodone 5/325 mg. 2. Allopurinol. 3. Calcium 600 mg b.i.d. 4. Vitamin D3 1000 International Units daily. 5. Flomax 0.4 mg daily. ALLERGIES No known drug allergies. REVIEW OF SYSTEMS CONSTITUTIONAL: Patient denies any recent fevers, chills, night sweats, or recent infections. HEENT: He denies any changes in vision or epistaxis. No mouth sores. LUNGS: He denies any significant shortness of breath. He denies any hemoptysis or pleuritic chest pain. CARDIAC: He denies any chest pain. No syncope or presyncope. GASTROINTESTINAL: No abdominal pain. He has occasional constipation, but uses prune juice to help with this. No nausea or vomiting. No diarrhea, bright red blood per rectum, or melena. Appetite has been low, though this tends to wax and wane. GENITOURINARY: He continues to have some daytime urgency as well as nocturia times three to four. This is stable and largely unchanged. He remains on Flomax b.i.d. NEUROLOGIC: He denies any headache or seizure-like activity. He denies any paresthesias. PSYCHIATRIC: He denies any severe depression, severe anxiety, suicidal or homicidal ideation. ENDOCRINE: He denies any vasomotor symptoms. MUSCULOSKELETAL: He reports some generalized weakness. He continues to have some lower back pain as well as some right rib cage type pain. The remainder of a 12-point review of systems is performed today and is otherwise negative. PHYSICAL EXAMINATION VITAL SIGNS: Weight 158.8 pounds, stable compared to 10/27/18. Temperature 97.4, P 92, R 16, BP 135/90, oxygen saturation 88% to 90% on room air. GENERAL: In general, this is a pleasant, elderly 78-year-old gentleman who appears somewhat chronically ill, but is in no acute distress. HEAD: Normocephalic, atraumatic. EYES: Sclerae anicteric. ENT, MOUTH: Moist mucous membranes. No mucositis. NECK: Supple. No palpable adenopathy. No JVD. LUNGS: Fairly clear and symmetric breath sounds bilaterally, diminished at the bases. No wheezes, rales, or rhonchi. Respiratory effort is normal. CARDIOVASCULAR: Regular rate and rhythm. No murmurs, no ectopy. EXTREMITIES: No edema. No clubbing. No cyanosis. NEUROLOGIC: Patient is awake, alert, and oriented times three. No gross motor or sensory deficits. PSYCHIATRIC: Mood and affect are appropriate. MUSCULOSKELETAL: No pain to palpation of bony spinous processes today. Gait is somewhat slow, but steady. LABORATORY No labs today. CBC on 11/19/18: WBC 5.0, ANC 4.1, hemoglobin 13.4, hematocrit 41.0%, platelets 182,000. CMP on 11/19/18: Largely unremarkable with the exception of minimally low total protein at 6.2. Albumin was normal at 3.5. PSA on 11/19/18: Down to 10.7. Previously, this was 92.2 on 09/20/18. IMAGING CT chest, abdomen, and pelvis with contrast at on 11/24/18: 1. Mixed results of interval therapy. 2. Interval progression of widely metastatic blastic osseous metastases, which have increased in both size and number. 3. Interval regression of metastatic retroperitoneal adenopathy. 4. Extensive colonic diverticulosis as well as additional benign findings discussed in the report are unchanged. Total body bone scan at on 11/24/18: 1. Results of this nuclear medicine study are discordant from the comparison CT scans. The CT scan performed today demonstrates progression of blastic metastatic disease with lesions increasing in size and number. This nuclear medicine study demonstrates persistent abnormal radiotracer uptake, but the lesions are less radiotracer avid than the prior examination. This raises the possibility that the lesions have progressed with the patient now receiving therapy, which may be impairing the metabolic activity of these lesions. IMPRESSION AND PLAN The patient is a 78-year old male who presented in July 2018 with metastatic prostate cancer to the bone, biopsy proven. Began degarelix on August 27, 2018. Completed palliative radiation to T10 to L5 and left hip on September 21, 2018. 1. Prostate cancer: No labs done today, though we reviewed his most recent PSA from 10/22/18. He is aware that this continues to trend down and is now 10.7. He is to continue with Lupron 7.5 mg Depo monthly. He reports tolerating this well and will be due for his next Lupron injection in a couple of weeks. 2. Back pain: Continues, although this initially improved after palliative radiotherapy from T10 to L5 as well as the left hip. He uses hydrocodone p.r.n. for this, and we discussed that he can continue to use this. He does not need any refills today. Discussed constipation as a result of hydrocodone and discussed utilizing stool softeners or MiraLAX powder in addition to prune juice, though patient tells me prune juice works the best for him. 3. Genitourinary: Stable. Nocturia three to four. He will remain on Flomax 0.4 mg b.i.d. 4. Imaging: Reviewed CT scan and bone scan results with patient, his , and son today. We had a long discussion. I explained that results revealed mixed interval response to therapy, with the CT scan showing improvement in the retroperitoneal adenopathy with decrease in size of lesions. There was no progressive disease on CT scan. 5. Bone scan: Discussed bone scan results. Discussed that these were compared to his last bone scan in July as well as CT scan. CT scan shows worsening bony metastases, and bone scan demonstrates persistent abnormal radiotracer uptake, though these lesions are less radiotracer avid than prior examination. 6. Bisphosphonate therapy: Discussed initiating treatment for his bony metastases. We discussed dental care, and he does not have any upcoming dental work. Discussed the risk for ONJ (osteonecrosis of the jaw). Patient is agreeable to initiate either Zometa or Xgeva. I discussed common side effects and provided patient with printed information. We will likely start him on Xgeva as this is easier to be given subcutaneously as he is on Lupron injection monthly. We will try and schedule this so that he receives treatment with both on the same day. 7. I discussed his case today by phone with Dr. Anand. We will see if there is any area on CT scan that may be amenable to biopsy in order to evaluate his overall disease and evaluate whether or not there is any neuroendocrine component to his metastatic prostate cancer. I will make sure that we discuss that there are some discordant results between the bone scan and CT scan. 8. Patient will continue on androgen deprivation therapy with monthly Lupron. 9. Patient will return to clinic in two weeks as scheduled for followup and his next dose of Lupron, and we will plan to initiate Xgeva at that time. MTDD
[2018-12-17 09:55] VITALS: BP 100/60
--- NOTE | 2018-12-20 15:50 | Oncology Note ---
I called Mr. Barakat this afternoon, as he left a message with our nurses on Thursday, asking to discuss his pain medications. I didn't get an answer but left a voicemail asking him to return my call. I will need to speak to the patient first before any recommendations or treatment changes can be made. KG Howard APRN,LUMP RECEIVER Dec 20, 2018 15:50
[~2019-01-14 08:48] MED LIST changes: +DEGARELIX ACETATE 80 MG SQ ONE; +DENOSUMAB 120 MG/1.7 ML VIAL SUBQ ONE; +HYDR-653 PO; +IOPAMIDOL 76% 150 ML INFUS BTL 150 ML ONE; +MORPHINE 2 MG/ML SYR IVP ONE; +[UNRECOGNIZED DRUG - OTHER] IM ONLY ONE
[2019-01-14 08:58] VITALS: BP 131/75
[2019-01-14] MEDS ORDERED: DENOSUMAB 120 MG/1.7 ML VIAL SUBQ ONE (09:00)
[2019-01-14] MEDS ORDERED: [UNRECOGNIZED DRUG - OTHER] IM ONLY ONE (09:00)
[2019-01-14 09:16] LABS: PLATELET COUNT, AUTOMATED 165 K/uL (150-450)
== END 2019-01-20 ==
LOC: SPU 08:48
PROVIDERS: ATTEND Internal Medicine Medical Oncology
DX: C61 Malignant neoplasm of prostate (principal); Z79.899 Other long term (current) drug therapy; R09.02 Hypoxemia; R42 Dizziness and giddiness; R53.83 Other fatigue; F17.210 Nicotine dependence, cigarettes, uncomplicated
CPT/HCPCS: 36415; 71260; 74177; 78306; 83735; 84100; 84153; 85025; 85027; 96372; A9503; G0463; J0897; J9155; J9217; Q9967; 82040; 82247; 82310; 82374; 82435; 82565; 82947; 84075; 84132; 84155; 84295; 84450; 84460; 84520; 99212; J2270

== ENCOUNTER → 2019-03-07 | Outpatient (CLI) | payer MEDICARE, OTHER ==
[~2019-03-07] MED LIST changes: -DEGARELIX ACETATE 80 MG SQ ONE; -DENOSUMAB 120 MG/1.7 ML VIAL SUBQ ONE; +HYDR-393 PO; +IOPAMIDOL 76% 100 ML INFUS BTL 100 ML ONE; -IOPAMIDOL 76% 150 ML INFUS BTL 150 ML ONE; -MORPHINE 2 MG/ML SYR IVP ONE; -[UNRECOGNIZED DRUG - OTHER] IM ONLY ONE
--- NOTE | 2019-03-07 11:00 | RADIOLOGY IMAGING REPORT ---
FACILITY: [facility] [place] PATIENT NAME: Doug Barakat : 1940 MR: [id number] V: [id number] EXAM DATE: ORDERING PHYSICIAN: RUDDY MENA TECHNOLOGIST: Location: [facility] Patient: Doug Barakat : 1940 Visit/Account:[id number] Date of Sevice: 03/07/2019 CT CHEST ABDOMEN PELVIS W & W/O HISTORY: Prostate cancer follow-up ADDITIONAL HISTORY: None. TECHNIQUE: Pre and post administration of IV contrast axial images acquired through the chest abdome n and pelvis during the portal venous phase. Coronal and sagittal reformatting was also performedDos e Lowering Technique One of the following dose optimization techniques was utilized in the performance of this exam: Autom ated exposure control; adjustment of the mA and/or kV according to the patient's size; or use of an i terative reconstruction technique. Specific details can be referenced in the facility's radiology C T exam operational policy. CONTRAST: 75 mL Isovue-370 COMPARISON: November 24, 2018 FINDINGS: CHEST: Lungs/Pleura: 2 mm micronodule in the anterior right upper lobe appears stable and is best appreciat ed on image 30 of series 7. Additional 3 mm micronodule anterior aspect right upper lobe also appears stable best seen on image 4 0 of series 7 Scarring in the lung bases remains unchanged Mediastinum/lymph nodes: Negative. Heart/vessels: There moderate to severe atherosclerotic calcifications at the aortic arch and branch vessels including the coronary arteries Bones/soft tissues: Extensive blastic metastases appear relatively unchanged throughout the visualiz ed bones ABDOMEN AND PELVIS: Hepatobiliary: Negative. Spleen: Negative. Pancreas: Negative. Adrenals: Negative. Kidneys ureters and bladder : Negative. Genitalia: Prostate gland is minimally enlarged, heterogeneous and contains coarse calcifications GI: There is diverticulosis throughout the colon although no CT evidence of acute diverticulitis. There is a large hiatal hernia Vessels/spaces/nodes: Extensive atherosclerotic calcifications are again seen throughout the abdomin al aorta and branch vessels. 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 There is a small amount of free pel guillermo fluid and no pathologically enlarged lymph nodes are identified this time Bones/soft tissues: Extensive blastic metastases appear relatively unchanged. There is a right ingu inal hernia containing fat. An ovoid soft tissue density within the right inguinal canal may represe nt undistended/retracted testicle Additional findings: None pertinent. IMPRESSION: Tiny micronodules in the right upper lobe appears stable and are of doubtful significance Diffuse osteoblastic metastases appear relatively unchanged Extensive atherosclerotic calcifications throughout the chest abdomen pelvis as detailed above Colonic diverticulosis although no CT evidence of acute diverticulitis Small amount of free pelvic fluid Additional chronic findings as described Report Dictated By: Madalyn Smith MD at 03/07/2019 10:34 AM Report E-Signed By: Madalyn Smith MD at 03/07/2019 10:53 AM WSN:[email or web address]
--- NOTE | 2019-03-07 15:35 | RADIOLOGY IMAGING REPORT ---
FACILITY: [facility] PATIENT NAME: Doug Barakat : 1940 MR: [id number] V: [id number] EXAM DATE: ORDERING PHYSICIAN: RUDDY MENA TECHNOLOGIST: [place] [facility] [place] Patient: Doug Barakat : 1940 Visit/Account:[id number] Date of Sevice: 03/07/2019 WHOLE BODY BONE SCAN HISTORY: Prostate cancer TECHNIQUE: 24.3 mCi technetium 99m HDP was injected intravenously. Delayed anterior and posterior wh ole body gamma camera images were obtained. Additional gamma camera images: Right left lateral skull COMPARISON: November 24, 2018 FINDINGS: Bone radiotracer activity: There multiple areas of isotope uptake in the thoracic and lumbar spine a nd in the bilateral ribs. The findings are similar to the recent bone scan. There is much less isot ope uptake on today's study to account for the extensive osteoblastic metastases seen on today's CT s can.. Focal area of isotope uptake present previously and the posterior left lateral skull is much less pro minent Extraosseous radiotracer activity: Unremarkable. Renal and urinary collecting system activity: Unremarkable. IMPRESSION: Multiple there is advised uptake in the thoracic lumbar spine and bilateral ribs appear similar to th e prior study. The findings are much less impressive as compared to today's CT scan that demonstrate d a far more extensive osteoblastic metastases. The focal area of breast uptake in the posterior lef t lateral skull appears less prominent Report Dictated By: Madalyn Smith MD at 03/07/2019 3:25 PM Report E-Signed By: Madalyn Smith MD at 03/07/2019 3:29 PM WSN:[email or web address]
== END ==
LOC: CT 07:03
PROVIDERS: ATTEND Internal Medicine Medical Oncology
DX: R91.8 Other nonspecific abnormal finding of lung field (principal); C79.51 Secondary malignant neoplasm of bone; I70.90 Unspecified atherosclerosis; K57.90 Diverticulosis of intestine, part unspecified, without perforation or abscess without bleeding
CPT/HCPCS: 71270; 74178; 78306; A9503; Q9967